=== PATIENT | female | born 2000 | race Caucasian/White ===

== ENCOUNTER 2022-01-05 01:10 | Emergency (ER) | payer OTHER ==
[~2022-01-05 01:10] MED LIST: ATARAX25 MG PO; ATIVAN0.5 MG PO; BACTRIM DS TAB1 EACH PO; XANAX0.5 MG PO
== END 2022-01-05 02:42 | disposition left against medical advice (07) ==
LOC: FER 01:10
DX: Z04.1 Encounter for examination and observation following transport accident (principal); Z53.29 Procedure and treatment not carried out because of patient's decision for other reasons
CPT/HCPCS: 99283